=== PATIENT | male | born 1985 | race Caucasian/White ===

== ENCOUNTER 2025-08-03 23:51 | Emergency (ER) | payer BC, MEDICAID ==
--- NOTE | 2025-08-04 01:14 | NUR ---
called for triage . no answer
--- NOTE | 2025-08-04 01:28 | NUR ---
CALLED FOR TRIAGE, NO ANSWER
== END 2025-08-04 02:14 | disposition left against medical advice (07) ==
LOC: ER 23:56
DX: F41.9 Anxiety disorder, unspecified (principal); Z53.21 Procedure and treatment not carried out due to patient leaving prior to being seen by health care provider